=== PATIENT | female | born 2000 | race Caucasian/White ===

== ENCOUNTER → 2020-08-13 | Outpatient (CLI) | payer BC ==
--- NOTE | 2020-08-13 10:12 | REP ---
INDICATION: IRREG MENSES/ABD PAIN COMPARISON: None. TECHNIQUE: Transabdominal pelvic ultrasound followed by transvaginal examination for better evaluation of the endometrium and adnexa with color Doppler evaluation of the ovaries. FINDINGS: Bladder is under distended. Normal retroverted uterus measures 7.4 x 3.2 x 4.8 cm. The endometrial complex measures 2.8 mm thickness. No discrete uterine or endometrial abnormalities are appreciated. Bilateral ovaries are normal in appearance and vascularity without evidence for torsion. Right ovary measures 2.7 x 1.7 x 2.7 cm; R I = 0.43. Left ovary measures 2.9 x 1.7 x 1.9 cm; R I = 0.55. No pelvic fluid or adnexal mass lesion. IMPRESSION: Normal pelvic ultrasound. <Electronically signed by Rich Gonzalez > 08/13/20 [id number]
== END ==
LOC: M WHC 08:54
PROVIDERS: ATTEND Nurse Practitioner
DX: N92.6 Irregular menstruation, unspecified (principal); R10.9 Unspecified abdominal pain

== ENCOUNTER → 2020-10-02 | Outpatient (CLI) | payer BC ==
--- NOTE | 2020-10-02 07:56 | REP ---
INDICATION: IBS, EPIGASTRIC PAIN, LUQ PAIN. COMPARISON: None. TECHNIQUE: Right upper quadrant sonography FINDINGS: Scanning through the right upper quadrant of the abdomen demonstrates a normal sized, thin-walled gallbladder without evidence of stone or polyp. Common bile duct is normal measuring 0.3 cm in greatest diameter. No focal liver lesion is seen. Liver size is normal. No pancreatic abnormality is observed. No right renal abnormality is seen. There is no evidence of ascites. The right kidney measures 9.2 x 6.6 x 4.7 cm. IMPRESSION: Negative right upper quadrant sonography. <Electronically signed by Leonel Hull > 10/02/20 [id number]
== END ==
LOC: M RAD 06:27
PROVIDERS: ATTEND Internal Medicine Gastroenterology
DX: K58.0 Irritable bowel syndrome with diarrhea (principal); R10.13 Epigastric pain; R10.12 Left upper quadrant pain